=== PATIENT | female | born 1955 | race Caucasian/White ===

== ENCOUNTER 2019-03-17 09:12 | Day surgery (SDC) | payer MEDICARE, BC ==
[~2019-03-17 09:12] MED LIST: Midazolam 1 MG/ML 2 ML SDV ONE; Propofol 200 MG/20 ML SDV ONE; Sodium Chloride 0.9% 10 ML Syringe FLUSH PRN; fentaNYL 250 MCG/5 ML SDV ONE
[2019-03-17] MEDS: Lactated Ringers 1,000 ML IV SCH ×2 (10:16→11:42)
--- NOTE | 2019-03-17 10:22 | PCM.HPR ---
H & P Addendum review - H & P Addendum Review Date of Original H & P: 03/15/19 Date Reviewed: 03/17/19 Time Reviewed: 10:22 Patient was Examined: No Changes
[2019-03-17] MEDS ORDERED: fentaNYL 250 MCG/5 ML SDV ONE (10:42)
[2019-03-17] MEDS ORDERED: Dexamethasone 10 MG/ML SDV ONE (10:42)
[2019-03-17] MEDS ORDERED: fentaNYL 100 MCG/2 ML SDV ONE ×2 (10:42→11:39)
[2019-03-17] MEDS ORDERED: Midazolam 1 MG/ML 2 ML SDV ONE (10:42)
[2019-03-17] MEDS ORDERED: Ondansetron 4 MG/2 ML SDV ONE (10:42)
[2019-03-17] MEDS ORDERED: Succinylcholine 200 MG/10 ML MDV ONE (10:42)
[2019-03-17] MEDS ORDERED: Neostigmine Methylsulfate 10 MG/10 ML MDV ONE (10:42)
[2019-03-17] MEDS ORDERED: Rocuronium 100 MG/10 ML MDV ONE (10:42)
[2019-03-17] MEDS ORDERED: Propofol 200 MG/20 ML SDV ONE (10:42)
[2019-03-17] MEDS ORDERED: Glycopyrrolate 0.2 MG/ML SDV ONE (10:42)
--- NOTE | 2019-03-17 11:17 | PCM.OPNOTE ---
- General Post-Op/Procedure Note Date of Surgery/Procedure: 03/17/19 Operative Procedure(s): L Tonsillectomy Findings: L Tonsil cyst Pre Op Diagnosis: L tonsil cyst Post-Op Diagnosis: Same Anesthesia Technique: General ET Tube Primary Surgeon: Seth Mcconnell Anesthesia Provider: Светлана KNAPP in mLs: 2 Complications: None Condition: Good
[2019-03-17 15:59] VITALS: BP 157/83; PULSE 79
--- NOTE | 2019-03-18 10:35 | OR ---
Date of Procedure: 03/17/2019 PREOPERATIVE DIAGNOSIS: Left tonsil cyst. POSTOPERATIVE DIAGNOSIS: Left tonsil cyst. PROCEDURE PERFORMED: Left tonsillectomy. ANESTHESIA: General. PROCEDURE IN DETAIL: Patient was brought to the operating room where general endotracheal anesthesia was administered. The oral gag retractor was inserted and her jaw was tight, which made it difficult to open the retractor and get good exposure. I was able to open her mouth enough to be able to see the hypopharynx and left tonsil cyst at the base of the tonsil. The left tonsil was grasped and retracted medially. Electrocautery was used to dissect along its muscular plane, removing the tonsil and the cyst without difficulty. Some minimal oozing occurred that was easily controlled with electrocautery. The right tonsil was normal and was not removed. The surgical site was inspected and remained hemostatic after the retractor was released. The retractor was then removed and patient extubated and returned to recovery in stable condition. ESTIMATED BLOOD LOSS: 2 mL. ANDREW RAY MD /[id number]
== END 2019-03-17 15:54 | disposition home or self-care (01) ==
LOC: LL.SDS 09:12
PROVIDERS: ATTEND Surgery
DX: J35.8 Other chronic diseases of tonsils and adenoids (principal); I10 Essential (primary) hypertension; E78.5 Hyperlipidemia, unspecified; E11.9 Type 2 diabetes mellitus without complications; G47.33 Obstructive sleep apnea (adult) (pediatric); I48.91 Unspecified atrial fibrillation; F41.9 Anxiety disorder, unspecified; F32.9 Major depressive disorder, single episode, unspecified; E83.42 Hypomagnesemia; K21.9 Gastro-esophageal reflux disease without esophagitis; Z79.84 Long term (current) use of oral hypoglycemic drugs; Z79.899 Other long term (current) drug therapy; Z88.8 Allergy status to other drugs, medicaments and biological substances; Z99.89 Dependence on other enabling machines and devices; Z98.890 Other specified postprocedural states
CPT/HCPCS: 00170; 42826; 82962; J0330; J1100; J2250; J2405; J2704; J2710; J3010; J3490; J7120

== ENCOUNTER 2020-07-05 08:02 | Day surgery (SDC) | payer MEDICARE, BC ==
[~2020-07-05 08:02] MED LIST changes: +Lactated Ringers 1,000 ML IV SCH; -Midazolam 1 MG/ML 2 ML SDV ONE; -Propofol 200 MG/20 ML SDV ONE; -Sodium Chloride 0.9% 10 ML Syringe FLUSH PRN; -fentaNYL 250 MCG/5 ML SDV ONE
[2020-07-05] MEDS ORDERED: Sodium Chloride 0.9% 10 ML Syringe FLUSH PRN (08:11)
[2020-07-05] MEDS ORDERED: Propofol 200 MG/20 ML SDV ONE ×2 (08:31→09:00)
[2020-07-05] MEDS ORDERED: Midazolam 1 MG/ML 2 ML SDV ONE ×2 (08:31→09:00)
--- NOTE | 2020-07-05 09:00 | PCM.HPR ---
H & P Addendum review - H & P Addendum Review Date of Original H & P: 06/22/20 Date Reviewed: 07/05/20 Time Reviewed: 08:59 Patient was Examined: No Changes
--- NOTE | 2020-07-05 09:38 | PCM.OPNOTE ---
- General Post-Op/Procedure Note Date of Surgery/Procedure: 07/05/20 Operative Procedure(s): Colonoscopy Findings: Chronic Anal Fissure Pre Op Diagnosis: Screening Post-Op Diagnosis: Same Primary Surgeon: Seth Mcconnell Anesthesia Provider: Светлана KNAPP in mLs: 0 Complications: None Condition: Good
[2020-07-05 11:04] VITALS: BP 140/70; PULSE 71
--- NOTE | 2020-07-06 10:03 | OR ---
Date of Procedure: 07/05/2020 PREOPERATIVE DIAGNOSIS: Colon screening. POSTOPERATIVE DIAGNOSIS: Chronic anal fissure. PROCEDURE: Colonoscopy. ANESTHESIA: IV sedation. PROCEDURE IN DETAIL: Patient was brought to the procedure room where she was placed on her left side and IV sedation administered. Digital rectal exam was performed, which was normal. 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 The colonoscope was inserted and advanced to the level of the cecum without difficulty. Cecal position was confirmed by identifying the appendiceal lumen and ileocecal valve. Prep was good and surfaces were well visualized. Upon withdrawing the scope, the ascending, transverse, and descending colon were normal in appearance. Sigmoid colon and rectum were normal. Retroflexion was normal. Air was removed and the scope withdrawn. Patient tolerated the procedure well and returned to recovery in stable condition. No further colon screening is necessary due to age. ANDREW RAY MD /[id number]
== END 2020-07-05 10:55 | disposition home or self-care (01) ==
LOC: LL.SDS 08:02
PROVIDERS: ATTEND Surgery
DX: K60.1 Chronic anal fissure (principal); I10 Essential (primary) hypertension; E11.9 Type 2 diabetes mellitus without complications; E66.01 Morbid (severe) obesity due to excess calories; I47.1 Supraventricular tachycardia; N39.0 Urinary tract infection, site not specified; Z20.822 Contact with and (suspected) exposure to COVID-19; Z68.41 Body mass index [BMI] 40.0-44.9, adult; R92.8 Other abnormal and inconclusive findings on diagnostic imaging of breast
CPT/HCPCS: 00812; 76642-LT; 82947; J2250; J2704; J7120; U0002

== ENCOUNTER 2021-07-04 10:26 | Day surgery (SDC) | payer MEDICARE ==
[2021-07-04] MEDS ORDERED: Lactated Ringers 1,000 ML IV SCH (10:45)
[2021-07-04] MEDS ORDERED: Sodium Chloride 0.9% 10 ML Syringe FLUSH PRN (10:45)
[2021-07-04] MEDS ORDERED: Propofol 200 MG/20 ML SDV ONE ×3 (11:31→13:22)
[2021-07-04 15:56] VITALS: BP 113/58; PULSE 65
== END 2021-07-04 15:05 | disposition home or self-care (01) ==
LOC: LL.SDS 10:26
PROVIDERS: ATTEND Surgery
DX: K52.831 Collagenous colitis (principal); K29.50 Unspecified chronic gastritis without bleeding; K31.89 Other diseases of stomach and duodenum; K31.7 Polyp of stomach and duodenum; K44.9 Diaphragmatic hernia without obstruction or gangrene; K57.30 Diverticulosis of large intestine without perforation or abscess without bleeding; E11.9 Type 2 diabetes mellitus without complications; F41.9 Anxiety disorder, unspecified; F32.A Depression, unspecified; E78.5 Hyperlipidemia, unspecified; I48.0 Paroxysmal atrial fibrillation; G47.30 Sleep apnea, unspecified; Z98.890 Other specified postprocedural states; Z79.84 Long term (current) use of oral hypoglycemic drugs; Z79.82 Long term (current) use of aspirin; Z79.899 Other long term (current) drug therapy
CPT/HCPCS: 43239; 45380; J2704; J7120; 00813